=== PATIENT | female | born 1990 | race American Indian/Alaskan Native ===

== ENCOUNTER 2020-04-21 23:07 | Emergency (ER) | payer SELFPAY ==
[2020-04-22 00:41] VITALS: BP 104/50
--- NOTE | 2020-04-22 01:18 | XRay Report ---
LEFT HAND 3 VIEWS INDICATION / CLINICAL INFORMATION: left hand pain. COMPARISON: None available. FINDINGS: BONES/JOINT(S): No acute fracture or subluxation. No significant degenerative changes. SOFT TISSUES: No significant abnormality. ADDITIONAL FINDINGS: None. Signer Name: Reinaldo Jimenez MD Signed: 04/22/2020 1:13 AM Workstation Name: [id number]
--- NOTE | 2020-04-22 01:36 | Emergency Department Report ---
Upper Extremity - HPI Chief Complaint: Extremity Injury, Upper Stated Complaint: LEFT HAND INJURY Upper Extremity: Left Hand Occurred When: 2 Days Mechanism: Hyperextension Symptoms: Yes Pain with Movement, No Deformity, No Limited Range of Movement, No Numbness, No Weakness, No Swelling, No Bruising/Ecchymosis, No Laceration or Abrasion Other History: The patient was evaluated in the emergency department for symptoms described in the history of present illness. He/she was evaluated in the context of the global COVID-19 pandemic, which necessitated consideration t hat the patient might be at risk for infection with the virus that causes COVID- 19. Institutional protocols and algorithms that pertain to the evaluation of patients at risk for COVID-19 are in a state of rapid change based on information released by regulatory bodies including the CDC and federal and state organizations. These policies and algorithms were followed during the patient's care in the emergency department. Please note that these policies, procedures and recommendations changed on a rapid basis. 29-year-old - [place] female presents to the emergency room for 2-day history of hyper extending her left hand while at work. Patient states that is her dominant hand. Patient has not taken anything for pain. ED Review of Systems ROS: Stated complaint: LEFT HAND INJURY Other details as noted in HPI Comment: All other systems reviewed and negative ED Past Medical Hx - Past Medical History Previous Medical History?: Yes Hx Asthma: Yes - Surgical History Past Surgical History?: Yes Additional Surgical History: Myomectomy - Social History Smoking Status: Never Smoker Substance Use Type: None Upper Extremity Exam - Exam General: Vital signs noted. No distress. Alert and acting appropriately. Head and Torso: No HEENT Abnormality, No Neck Tenderness, No Chest/Lungs Abnormality, No Abdominal Tenderness, No Back Tenderness Shoulder Exam: Yes Normal Range of Motion in Shoulder, No Shoulder Tenderness, No Clavicle Tenderness, No Shoulder Deformity, No AC Joint Tenderness Arm Exam: No Arm/Humerus Tenderness, No Arm Deformity Elbow: No Elbow Tenderness, No Normal Range of Motion in Elbow, No Elbow Deformity Forearm: No Forearm Tenderness, No Forearm Deformity, No Pain with Pronation, No Pain with Supination Wrist: Yes Normal ROM in Wrist, No Wrist Tenderness, No Wrist Deformity, No Snuffbox Tenderness, No Pain with Axial Thumb Compression Hand: Yes Hand Tenderness, Yes Normal ROM in Digit(s), No Hand Deformity, No Digit Tenderness, No Digit(s) Deformity, No Tendon Dysfunction CMS Exam: No Broken Skin, No Normal Distal Pulses, No Normal Capillary Refill, No Normal Distal Sensation ED Course Vital Signs 04/22/20 00:31 Temperature 97.8 F Pulse Rate 60 Respiratory 18 Rate Blood Pressure 104/50 O2 Sat by Pulse 99 Oximetry ED Medical Decision Making - Radiology Data Radiology results: report reviewed Referring Physician:DEVON SALDIVARPatient Name:VERONICA MARTIPatient ID:[id number] of :[id number]:FemaleAccession:[id number] Date:[id number] Status:Finalized Findings [facility] [address] [place] [address] XRay Report Signed Patient: VERONICA MARTI MR#: [id number] : 1990 Acct:[id number] Age/Sex: 29 / F ADM Date: 04/21/20 Loc: ED Attending Dr: Ordering Physician: DEVON SALDIVAR MD Date of Service: 04/22/20 Procedure(s): XR hand 3+V LT Accession Number(s): [id number] cc: DEVON SALDIVAR MD Fluoro Time In Minutes: LEFT HAND 3 VIEWS INDICATION / CLINICAL INFORMATION: left hand pain. COMPARISON: None available. FINDINGS: BONES/JOINT(S): No acute fracture or subluxation. No significant degenerative changes. SOFT TISSUES: No significant abnormality. ADDITIONAL FINDINGS: None. Signer Name: Reinaldo Jimenez MD Signed: 04/22/2020 1:13 AM Workstation Name: [id number] Transcribed By: MAGUI Dictated By: Reinaldo Jimenez MD Electronically Authenticated By: Reinaldo Jimenez MD Signed Date/Time: 04/22/20112 DD/ 2 TD/TT: - Medical Decision Making 29-year-old -[place] female presents to the emergency room for 2-day history of hyper extending her left hand while at work. Patient states that is her dominant hand. Patient has not taken anything for pain. Critical care attestation.: If time is entered above; I have spent that time in minutes in the direct care of this critically ill patient, excluding procedure time. ED Disposition Clinical Impression: Sprain of hand, left Disposition: DC-01 TO HOME OR SELFCARE Is pt being admited?: No Does the pt Need Aspirin: No Condition: Stable Instructions: Intermetacarpal Sprain Additional Instructions: X-ray is negative for any acute fractures dislocation. I recommend for you to take ibuprofen or Tylenol for pain management. Follow-up with a orthopedic provider if you have any further concerns. Referrals: PRIMARY CAREMD [Primary Care Provider] - 3-5 Days LORIN MYERS MD [Staff Physician] - 3-5 Days Forms: Work/School Release Form(ED)
== END 2020-04-22 01:35 | disposition home or self-care (01) ==
LOC: ED 23:07
DX: S63.92XA Sprain of unspecified part of left wrist and hand, initial encounter (principal); J45.909 Unspecified asthma, uncomplicated; Z98.890 Other specified postprocedural states; Z91.013 Allergy to seafood; Z88.8 Allergy status to other drugs, medicaments and biological substances; X58.XXXA Exposure to other specified factors, initial encounter; Y93.89 Activity, other specified; Y92.89 Other specified places as the place of occurrence of the external cause; Y99.8 Other external cause status
CPT/HCPCS: 99283